=== PATIENT | female | born 1955 | race Caucasian/White ===

== ENCOUNTER 2018-10-15 10:56 | Day surgery (SDC) | payer OTHER ==
[~2018-10-15] VITALS: Ht 177.8 cm; Wt 112.0 kg
[2018-10-15] MEDS ORDERED: HYDROCODONE (11:35)
[2018-10-15] MEDS ORDERED: MECLIZINE (11:35)
[2018-10-15] MEDS ORDERED: EFFEXOR (11:35)
[2018-10-15 11:36] VITALS: Ht 177.8 cm; Wt 112.0 kg
--- NOTE | 2018-10-15 11:49 | PREAC ---
Date/Time of Note Date/Time of Note DATE: 10/15/18 TIME: 11:47 Anesthesia Eval and Record Evaluation Time Pre-Procedure Interview DATE: 10/15/18 TIME: 11:47 Age 63 Sex female NPO: 2 hrs Preoperative diagnosis colon ca screen Planned procedure colonoscopy Past Medical History Past Medical History: Includes Neuro: Other (chronic back pain) Psych: Depression Surgery & Anesthesia Issues No known issue Meds Anticoagulation: No Beta Kye within 24 hr: No Reason Beta Kye not given: Pt. not on B-Kye Reported Medications [Meclizine] No Conflict Check 10/15/18 [Effexor] No Conflict Check 10/15/18 [Hydrocodone] No Conflict Check 10/15/18 Meds reviewed: Yes Allergies Coded Allergies: No Known Allergy (Unverified , 10/15/18) Allergies Reviewed: Yes Labs/Studies Labs Reviewed: Reviewed by anesthesiologist test: N/A Pre-procedure Exam Airway: Adequate mouth opening Mallampati: Mallampati II Teeth: Normal Lung: Normal Heart: Normal ASA Physical Status ASA physical status: 2 Emergency: None Planned Anesthetic General/MAC: MAC Pre-operative Attestations Prior to commencing anesthesia and surgery, the patient was re-evaluated, there was verification of: *The patient's identity *The results of appropriate recent lab work and preoperative vital signs *The above evaluation not changing prior to induction *Anesthetic plan, risk benefits, alternative and complications discussed with patient/family; questions answered; patient/family understands, accepts and wishes to proceed. TISH ULRICH MD October 15, 2018 11:49
[2018-10-15] MEDS ORDERED: LIDOCAINE 2% (SDV) 5 ML INJ ONE (11:51)
[2018-10-15] MEDS ORDERED: PROPOFOL 40 ML ONE (11:51)
[2018-10-15] MEDS ORDERED: ONDANSETRON 4 MG INJ IV PRN (12:00)
[2018-10-15] MEDS ORDERED: morphine (1 MG/ML) 10ML SYRINGE IV PRN ×2 (12:00)
[2018-10-15 12:02] VITALS: BP 124/72; PULSE 90; RESP 23
[2018-10-15 13:01] VITALS: BP 125/80; PULSE 88; RESP 16
--- NOTE | 2018-10-15 13:38 | PAC ---
Date/Time of Note Date/Time of Note DATE: 10/15/18 TIME: 13:38 Post-Anesthesia Notes Post-Anesthesia Note Last documented vital signs Vital Signs Date Temp Pulse Resp B/P (MAP) Pulse Ox O2 O2 Flow FiO2 Time Delivery Rate 10/15/18 88 16 125/80 99 Room Air 13:01 (95) 10/15/18 97.2 12:02 Activity: WNL Respiratory function: WNL Cardiovascular function: WNL Mental status: Baseline Pain reasonably controlled: Yes Hydration appropriate: Yes Nausea/Vomiting absent: Yes TISH ULRICH MD October 15, 2018 13:38
== END 2018-10-15 12:53 | disposition home or self-care (01) ==
LOC: GIL 10:56
PROVIDERS: ATTEND Internal Medicine Gastroenterology
DX: Z12.11 Encounter for screening for malignant neoplasm of colon (principal); K64.8 Other hemorrhoids; K64.4 Residual hemorrhoidal skin tags; D12.5 Benign neoplasm of sigmoid colon
CPT/HCPCS: 45380; 88305; Z7610